=== PATIENT | male | born 1960 | race Caucasian/White ===

== ENCOUNTER → 2017-09-03 | Outpatient (CLI) | payer OTHER ==
[2017-09-03 10:19] LABS: BASO % 0.5 %; BASO ABS # 0.06 K/uL (0-0.2); EOS % 2.7 %; EOS ABS # 0.32 K/uL (0-0.5); HEMATOCRIT 44.5 % (42-52); HEMOGLOBIN 15.1 g/dL (14.0-18.0); IG# 0.06 K/uL (0.00-0.02); LYMPH % 29.7 %; LYMPH ABS # 3.55 K/uL (1.2-3.4); MEAN CELL VOLUME 89.5 fL (80-100); MEAN CORPUSCULAR HEMOGLOBIN 30.4 pg (25-34); MEAN CORPUSCULAR HGB CONC 33.9 g/dl (32-36); MEAN PLATELET VOLUME 9.3 fL (7.4-10.4); MONO % 8.4 %; NEUT % 58.2 %; NEUT ABS # 6.96 K/uL (1.4-6.5); PLATELET COUNT 432 K/uL (130-400); RED CELL DISTRIBUTION WIDTH CV 14.5 % (11.5-14.5); RED CELL DISTRIBUTION WIDTH SD 47.7 fL (36.4-46.3); WHITE BLOOD COUNT 11.95 K/uL (4.8-10.8)
[2017-09-03 10:54] LABS: ALBUMIN 3.9 gm/dl (3.4-5.0); ALT/SGPT 49 U/L (12-78); AST/SGOT 16 U/L (15-37); BLOOD UREA NITROGEN 27 mg/dl (7-18); CALCIUM 8.9 mg/dl (8.5-10.1); CARBON DIOXIDE 30 mmol/L (21-32); CREATININE 1.16 mg/dl (0.60-1.40); GLUCOSE 138 mg/dl (70-99); POTASSIUM 4.2 mmol/L (3.5-5.1); SODIUM 133 mmol/L (136-145)
[2017-09-03 10:57] LABS: ALKALINE PHOSPHATASE 100 U/L (45-117); CHOLESTEROL 166 mg/dl (0-200); LDL CHOLESTEROL CALCULATED 86 mg/dl; TOTAL PROTEIN 8.2 gm/dl (6.4-8.2)
[2017-09-03 11:07] LABS: CREATININE RANDOM URINE 89.8 mg/dl
[2017-09-03 11:09] LABS: HEMOGLOBIN A1C 6.8 % (4.5-5.6)
== END | disposition home or self-care (01) ==
LOC: C.LAB 09:36
PROVIDERS: ATTEND Family Medicine
DX: E11.9 Type 2 diabetes mellitus without complications (principal); E78.5 Hyperlipidemia, unspecified; G40.909 Epilepsy, unspecified, not intractable, without status epilepticus

== ENCOUNTER → 2017-09-17 | Outpatient (CLI) | payer OTHER ==
--- NOTE | 2017-09-17 11:37 | DIAGNOSTIC IMAGING REPORT ---
MRI OF THE BRAIN WITHOUT CONTRAST CLINICAL HISTORY: Stroke. History of head trauma. Left arm weakness. COMPARISON STUDY: None. FINDINGS: Sagittal T1, axial diffusion, proton density and T2 weighted axial, coronal FLAIR, and axial T1-weighted images were acquired. No intra or extra-axial mass lesions are visualized Axial diffusion-weighted images reveal no evidence of acute or subacute infarction. There is no evidence of ventricular dilatation. Proton density T2-weighted and FLAIR images reveal scattered foci of increased T2 signal within the white matter, likely on a small vessel basis. 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 There are no abnormal flow voids. IMPRESSION: 1. No acute intracranial findings 2. No evidence of acute or subacute infarction 3. 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 09/17/2017 11:35 AM Dictated Date/Time: 09/17/2017 11:30 AM
== END | disposition home or self-care (01) ==
LOC: C.MRI 10:35
PROVIDERS: ATTEND Physical Medicine & Rehabilitation
DX: G81.14 Spastic hemiplegia affecting left nondominant side (principal); R29.818 Other symptoms and signs involving the nervous system